=== PATIENT | female | born 1965 | race Caucasian/White ===

== ENCOUNTER → 2018-01-13 | Outpatient (CLI) | payer OTHER ==
[~2018-01-13] MED LIST: IMITREX25 MG PO; PROMETHAZINE HC25 M1 PO; VALIUM10 MG PO
--- NOTE | 2018-01-14 08:59 | Diagnostic Imaging Report ---
MRI of the right ankle without contrast. History: Ankle pain. Fall. Internal drainage. Pain worse with walking. Technique: Utilizing a high-field 1.5T magnet, the following sequences were acquired: PD FS in all 3 planes with additional axial PD. Comparison: None. Findings: Achilles tendon and plantar fascia: The Achilles tendon and plantar fascia are normal. There is mild retrocalcaneal bursitis. Cartilage and bone: Negative for osteochondral lesion of the tibiotalar and subtalar joints. Negative for fracture, osteonecrosis, or dislocation Medial ankle: There is a mild sprain of the deltoid ligament complex. The majority of the fibers are intact. There is mild bone marrow edema in the medial malleolus likely due to a stress response. The medial flexor tendons are intact. There is mild soft tissue edema at the medial aspect of the ankle. Lateral ankle: There is a high-grade tear of the anterior talofibular and calcaneofibular ligaments with soft tissue edema at the anterior lateral gutter. The posterior talofibular ligaments are intact. Metallic artifact in the tip of the fibula obscures fine detail of the region. There is soft tissue edema at the lateral aspect of the ankle. The syndesmotic ligaments are intact. The peroneal tendons are normal. Anterior ankle: The anterior extensor tendons are normal. Other findings: There is a tibiotalar joint effusion and synovitis. Impression: High-grade tear of the anterior talofibular and calcaneofibular ligaments with soft tissue edema in the anterior lateral gutter. Mild sprain of the deltoid ligament complex. The majority of the fibers are intact. Tibiotalar joint effusion and synovitis. Signed by: Dr. Julio C To M.D. on 01/14/2018 8:56 AM
== END ==
LOC: MRI 15:39
PROVIDERS: ATTEND Podiatrist Foot Surgery
DX: M77.9 Enthesopathy, unspecified (principal); M79.671 Pain in right foot; M24.874 Other specific joint derangements of right foot, not elsewhere classified; S93.401A Sprain of unspecified ligament of right ankle, initial encounter

== ENCOUNTER 2019-05-16 13:59 | Outpatient (RCR) | payer OTHER | END 2019-05-21 | LOC: PT 13:59 | PROVIDERS: ATTEND Specialist | DX: M47.896 Other spondylosis, lumbar region (principal); M62.81 Muscle weakness (generalized); M53.86 Other specified dorsopathies, lumbar region ==

== ENCOUNTER 2019-06-07 16:47 | Outpatient (RCR) | payer OTHER | END 2019-06-21 | LOC: PT 16:47 | PROVIDERS: ATTEND Specialist | DX: M47.896 Other spondylosis, lumbar region (principal) ==

== ENCOUNTER 2020-01-07 14:16 | Inpatient (IN) | payer OTHER ==
[~2020-01-07] VITALS: Ht 172.7 cm; Wt 81.6 kg
[2020-01-07] MEDS ORDERED: KETOROLAC TROMETHAMINE 30 MG/ML VIAL IV ONE (14:49)
[2020-01-07] MEDS ORDERED: SODIUM CHLORIDE 0.9% 1000ML 1,000 ML IV STA (14:49)
[2020-01-07] MEDS ORDERED: SODIUM CHLORIDE FLUSH 10 ML SYR INJ PRN (15:00)
[2020-01-07] MEDS ORDERED: LORAZEPAM INJ 2 MG/ML VIAL IV ONE (15:00)
[2020-01-07] MEDS ORDERED: SODIUM CHLORIDE 0.9% 1000ML 1,000 ML ONE (15:13)
[2020-01-07] MEDS ORDERED: KETOROLAC TROMETHAMINE 30 MG/ML VIAL ONE (15:13)
[2020-01-07] MEDS ORDERED: LORAZEPAM INJ 2 MG/ML VIAL ONE (15:13)
[2020-01-07 15:47] LABS: HEMATOCRIT 48.6 % (34.2-44.1); HEMOGLOBIN 16.6 g/dL (12.0-16.0); MEAN CORPUSCULAR HEMOGLOBIN 29.2 pg (28-32); MEAN CORPUSCULAR HGB CONC 34.2 g/dL (31-35); MEAN CORPUSCULAR VOLUME 85.6 fL (81-99); PLATELET COUNT 386 x10e3/uL (140-360); RED BLOOD COUNT 5.68 x10e6/uL (3.6-5.1); RED CELL DISTRIBUTION WIDTH 12.7 % (11.7-14.4)
[2020-01-07] MEDS ORDERED: ONDANSETRON HCL INJ 2MG/ML 2ML 2 MG/ML VIAL IV STA ×2 (16:03→19:10)
[2020-01-07] MEDS ORDERED: ONDANSETRON HCL INJ 2MG/ML 2ML 2 MG/ML VIAL ONE ×2 (16:07→19:24)
[2020-01-07] MEDS ORDERED: ONDANSETRON HCL INJ 2MG/ML 2ML 2 MG/ML VIAL IV ONE (16:15)
[2020-01-07] MEDS ORDERED: IOPAMIDOL 370 MG/ML 200 ML INFUS..BTL INJ ONE (16:28)
[2020-01-07] MEDS ORDERED: SODIUM CHLORIDE 0.9% 50ML 50 ML ONE ×2 (16:28→16:55)
[2020-01-07] MEDS ORDERED: MORPHINE SULFATE INJ 4 MG/ML INJ 1ML IV ONE (16:30)
[2020-01-07] MEDS ORDERED: PROMETHAZINE 25MG/ NS 50ML (IV) IV ONE (16:30)
[2020-01-07] MEDS ORDERED: PROMETHAZINE HCL (IM) 25 MG/ML VIAL IM ONE (16:54)
[2020-01-07] MEDS ORDERED: MORPHINE SULFATE INJ 4 MG/ML INJ 1ML ONE ×2 (16:55→19:24)
[2020-01-07] MEDS ORDERED: CEFTRIAXONE SOD 2 GM/NS 100 ML 100 ML IV ONE (17:30)
[2020-01-07] MEDS ORDERED: CEFTRIAXONE SOD 1 GM/NS 50 ML 50 ML IV ONE (18:09)
[2020-01-07] MEDS ORDERED: CEFTRIAXONE SOD 1 GM VIAL ONE (18:09)
[2020-01-07] MEDS ORDERED: MORPHINE SULFATE INJ 4 MG/ML INJ 1ML IV STA (19:10)
[2020-01-07 20:00] VITALS: BP 107/62
[2020-01-07 20:30] VITALS: BP 107/62
[2020-01-07 21:00] VITALS: BP 107/62
[2020-01-07] MEDS: SODIUM CHLORIDE 0.9% 1000ML 1,000 ML IV SCH (21:45)
[2020-01-07] MEDS: KETOROLAC TROMETHAMINE 30 MG/ML VIAL IV PRN (22:38)
[2020-01-08] VITALS (9 sets, daily range): BP systolic 103–137; BP diastolic 53–71
[2020-01-08] MEDS: ONDANSETRON HCL INJ 2MG/ML 2ML 2 MG/ML VIAL IV PRN ×5 (01:07→19:22)
[2020-01-08] MEDS: MORPHINE SULFATE INJ 4 MG/ML INJ 1ML IV PRN ×5 (01:15→19:27)
[2020-01-08] MEDS: KETOROLAC TROMETHAMINE 30 MG/ML VIAL IV PRN ×3 (05:41→22:46)
[2020-01-08 06:20] LABS: BASOPHILS # (AUTO) 0.1 (0.0-0.1); BASOPHILS % 1.3 % (0.0-1.0); EOSINOPHILS # (AUTO) 0.4 (0.0-0.4); EOSINOPHILS % 6.9 % (0.0-6.0); HEMOGLOBIN 13.1 g/dL (12.0-16.0); LYMPHOCYTES # (AUTO) 2.2 (1.0-3.2); LYMPHOCYTES % 34.8 % (18.0-39.1); MEAN CORPUSCULAR HGB CONC 33.6 g/dL (31-35); MEAN CORPUSCULAR VOLUME 86.3 fL (81-99); MONOCYTES # (AUTO) 0.5 (0.2-0.8); MONOCYTES % 8.3 % (4.4-11.3); NEUTROPHILS # (AUTO) 3.1 (2.1-6.9); NEUTROPHILS % 48.4 % (38.7-80.0); PLATELET COUNT 293 x10e3/uL (140-360); RED BLOOD COUNT 4.52 x10e6/uL (3.6-5.1)
[2020-01-08 06:33] LABS: ANION GAP 10.7 mmol/L (8-16); BLOOD UREA NITROGEN 13 mg/dL (7-26); BUN/CREATININE RATIO 19 (6-25); CALCIUM 7.8 mg/dL (8.4-10.2); CARBON DIOXIDE 23 mmol/L (22-29); CHLORIDE 111 mmol/L (98-107); CREATININE, SERUM 0.68 mg/dL (0.57-1.11); EST GLOMERULAR FILTRATION RATE > 60 ML/MIN (60-); GLUCOSE 78 mg/dL (74-118); POTASSIUM 3.7 mmol/L (3.5-5.1); SODIUM 141 mmol/L (136-145)
[2020-01-08] MEDS ORDERED: CEFTRIAXONE SOD 1 GM VIAL IV SCH (07:00)
[2020-01-08] MEDS: CEFTRIAXONE SOD 1 GM/NS 50 ML 50 ML IV SCH ×2 (07:38→18:37)
[2020-01-08] MEDS ORDERED: IOPAMIDOL 300MG/ML 50ML INFUS..BTL IV ONE (11:38)
[2020-01-08] MEDS ORDERED: ONDANSETRON HCL INJ 2MG/ML 2ML 2 MG/ML VIAL ONE (12:31)
[2020-01-08] MEDS ORDERED: MIDAZOLAM HCL 2 MG/2 ML VIAL ONE (12:42)
[2020-01-08] MEDS ORDERED: FENTANYL CITRATE/PF 100MCG/2 ML INJ ONE (12:42)
[2020-01-08] MEDS: SODIUM CHLORIDE 0.9% 1000ML 1,000 ML IV SCH ×2 (15:01→16:49)
[2020-01-09] MEDS: ONDANSETRON HCL INJ 2MG/ML 2ML 2 MG/ML VIAL IV PRN
[2020-01-09] MEDS: MORPHINE SULFATE INJ 4 MG/ML INJ 1ML IV PRN (00:08)
[2020-01-09] MEDS: SODIUM CHLORIDE 0.9% 1000ML 1,000 ML IV SCH (02:33)
[2020-01-09] MEDS: CEFTRIAXONE SOD 1 GM/NS 50 ML 50 ML IV SCH (06:09)
[2020-01-09 06:30] LABS: BASOPHILS % 0.3 % (0.0-1.0); EOSINOPHILS % 0.1 % (0.0-6.0); HEMATOCRIT 40.8 % (34.2-44.1); HEMOGLOBIN 13.2 g/dL (12.0-16.0); LYMPHOCYTES # (AUTO) 1.7 (1.0-3.2); LYMPHOCYTES % 18.4 % (18.0-39.1); MEAN CORPUSCULAR HEMOGLOBIN 28.3 pg (28-32); MEAN CORPUSCULAR HGB CONC 32.4 g/dL (31-35); MEAN CORPUSCULAR VOLUME 87.6 fL (81-99); MONOCYTES # (AUTO) 0.7 (0.2-0.8); MONOCYTES % 7.3 % (4.4-11.3); NEUTROPHILS # (AUTO) 6.8 (2.1-6.9); NEUTROPHILS % 73.4 % (38.7-80.0); PLATELET COUNT 293 x10e3/uL (140-360); RED BLOOD COUNT 4.66 x10e6/uL (3.6-5.1); RED CELL DISTRIBUTION WIDTH 12.9 % (11.7-14.4)
[2020-01-09 06:57] LABS: ALANINE AMINOTRANSFERASE 25 IU/L (0-55); ALBUMIN 2.8 g/dL (3.5-5.0); ALKALINE PHOSPHATASE 67 IU/L (40-150); ANION GAP 11.8 mmol/L (8-16); BLOOD UREA NITROGEN 14 mg/dL (7-26); BUN/CREATININE RATIO 18 (6-25); CALCIUM 8.3 mg/dL (8.4-10.2); CARBON DIOXIDE 23 mmol/L (22-29); CHLORIDE 111 mmol/L (98-107); CREATININE, SERUM 0.77 mg/dL (0.57-1.11); EST GLOMERULAR FILTRATION RATE > 60 ML/MIN (60-); GLUCOSE 110 mg/dL (74-118); POTASSIUM 3.8 mmol/L (3.5-5.1); SODIUM 142 mmol/L (136-145)
[2020-01-09] MEDS ORDERED: ULTRAM50 MG PO (07:36)
[2020-01-09] MEDS ORDERED: BACTRIM DS TAB1 EACH PO (07:37)
[2020-01-09 08:05] VITALS: BP 146/90
[2020-01-09 08:09] VITALS: BP 146/90
[2020-01-09] MEDS ORDERED: SEVOFLURANE INHAL SOLN 250 ML PEN BTL ONE (13:05)
[2020-01-09] MEDS ORDERED: DEXAMETHASONE SOD PHOS INJ 4 MG/ML VIAL ONE (13:05)
[2020-01-09] MEDS ORDERED: PROPOFOL IV EMULSION 10 MG/ML 20 ML VIAL ONE (13:05)
[2020-01-09] MEDS ORDERED: ONDANSETRON HCL INJ 2MG/ML 2ML 2 MG/ML VIAL ONE (13:05)
[2020-01-09] MEDS ORDERED: LIDOCAINE HCL 2% LOCAL INJ 5 ML SDV VIAL INJ ONE (13:05)
== END 2020-01-09 09:13 | disposition home or self-care (01) | DRG 661 ==
LOC: FSED 14:36 → ERHOLD 18:13 → MED/SURG 20:35
PROVIDERS: ADMIT Family Medicine; ATTEND Family Medicine
PROC: 0T778DZ Dilation of Left Ureter with Intraluminal Device, Via Natural or Artificial Opening Endoscopic (ICD-10-PCS; 2020-01-08)
PROC: BT141ZZ Fluoroscopy of Kidneys, Ureters and Bladder using Low Osmolar Contrast (ICD-10-PCS; 2020-01-08)
PROC: 0T768ZZ Dilation of Right Ureter, Via Natural or Artificial Opening Endoscopic (ICD-10-PCS; principal; 2020-01-08 10:30)
DX: N13.2 Hydronephrosis with renal and ureteral calculous obstruction (principal); K76.0 Fatty (change of) liver, not elsewhere classified; N28.1 Cyst of kidney, acquired; Z11.59 Encounter for screening for other viral diseases; G43.909 Migraine, unspecified, not intractable, without status migrainosus; K59.00 Constipation, unspecified
CPT/HCPCS: 36415; 74177; 74420; 80048; 80053; 80076; 81003; 85007; 85025; 85027; 87086; 96374; 96375; 99284; C1758; C1769; C2617; J0696; J1100; J1885; J2001; J2060; J2250; J2270; J2405; J2550; J3010; J7030; Q9967; U0002

== ENCOUNTER → 2020-01-13 | Day surgery (SDC) | payer OTHER ==
[~2020-01-13] MED LIST changes: +BACTRIM DS TAB1 EACH PO; +DIPHENHYDRAMINE HCL INJ 50 MG/ML VIAL ONE; +FENTANYL CITRATE/PF 100MCG/2 ML INJ ONE; +GENTAMICIN 120MG/NS 100ML 100 ML IV ONE; +HYDROMORPHONE 1MG/1ML INJ ONE; +IOPAMIDOL 300MG/ML 50ML INFUS..BTL IV ONE; +KETOROLAC TROMETHAMINE 30 MG/ML VIAL ONE; +LIDOCAINE HCL 2% LOCAL INJ 5 ML SDV VIAL INJ ONE; +MIDAZOLAM HCL 2 MG/2 ML VIAL ONE; +ONDANSETRON HCL INJ 2MG/ML 2ML 2 MG/ML VIAL ONE; +PROPOFOL IV EMULSION 10 MG/ML 20 ML VIAL ONE; +SEVOFLURANE INHAL SOLN 250 ML PEN BTL ONE; +ULTRAM50 MG PO
--- NOTE | 2020-01-13 10:12 | Diagnostic Imaging Report ---
OR Fluoroscopy: IMPRESSION: Fluoroscopy service provided in the OR. Interpretation not requested. Signed by: Nikolai Monzon MD on 01/13/2020 10:09 AM
[2020-01-13 11:30] VITALS: BP 130/84
--- NOTE | 2020-01-17 10:44 | Operative Report ---
DATE OF PROCEDURE: 01/13/2020 SURGEON: Kristopher Beltre MD PREOPERATIVE DIAGNOSES: 1. Left ureteral stent. 2. Left ureteral calculus. POSTOPERATIVE DIAGNOSES: 1. Left ureteral stent. 2. Left ureteral calculus. PROCEDURES: 1. Cystourethroscopy with complicated removal of left indwelling ureteral stent (entirely separate procedure for diagnosis of encrusted left ureteral stent. 2. Left-sided ureteroscopy with laser lithotripsy (entirely separate procedure to rid the patient of a left impacted ureteral stone). 3. Left-sided ureteroscopy with stone extraction (entirely separate procedure with explicit purpose of sending stones for analysis, not required for laser lithotripsy). 4. Supervision of fluoroscopy for both ureteroscopic and stent removal portion. 5. Interpretation of retrograde pyelography. ANESTHESIA: General. ESTIMATED BLOOD LOSS: Minimal. COMPLICATIONS: None. INDICATIONS FOR PROCEDURE: Ms. Griffith is a very pleasant patient with a history of impacted left ureteral calculus. She and I had a long discussion of alternatives, risks, and benefits of doing nothing, shockwave lithotripsy, ureteroscopy, percutaneous surgery or open surgery. She voiced understanding of the options, alternatives, risks, and benefits and elected to proceed. PROCEDURE IN DETAIL: After informed consent was obtained, the patient was taken to the operative suite, placed on the operative table. General anesthesia was placed in dorsal lithotomy position and sterilely prepped and draped in standard fashion for cystoscopy. A 21-Turkish cystoscope was inserted per urethra. Normal urethra noted. Panendoscopy of the bladder revealed no tumors, no stones. Both ureteral orifices were normal anatomic location position and . Attempt was made to catheterize the stent, it was completely encrusted, this failed. Guidewire was inserted alongside the stent and seen to coil at the level of the renal pelvis on the fluoroscopy. The stent was removed intact. Ureteroscope was advanced to the level of ascending ureteral stone utilizing 365 micron laser fiber. The stone was obliterated with multiple fragments. several fragments were basket extracted and passed off the table as specimens. At this time, retrograde pyelograms performed revealing interim removal of stone, resolved hydronephrosis collecting system drained promptly under fluoroscopy. Bladder was drained. The patient was awakened from anesthesia and transported to the recovery room in excellent condition. Supervision of fluoroscopy and interpretation of retrograde pyelography: I was present for the entire procedure and supervised fluoroscopy for both ureteroscopic as well as stent removal portions. Attention was turned towards the left ureter orifices, which were catheterized revealing an interim removal left ureteral calculus. Chronic proximal hydronephrosis was drained under fluoroscopy and interim removal of stent. MD KEYUR Concepcion/MODL /[id number]
== END | disposition home or self-care (01) ==
LOC: OR 06:40
PROVIDERS: ATTEND Urology
DX: N20.1 Calculus of ureter (principal); Z46.6 Encounter for fitting and adjustment of urinary device; N13.30 Unspecified hydronephrosis; N39.0 Urinary tract infection, site not specified; G43.909 Migraine, unspecified, not intractable, without status migrainosus; F41.9 Anxiety disorder, unspecified; Z88.6 Allergy status to analgesic agent; Z88.1 Allergy status to other antibiotic agents; Z01.812 Encounter for preprocedural laboratory examination; Z11.59 Encounter for screening for other viral diseases
CPT/HCPCS: 52353; 74420; 88300; C1758; C1769; J1170; J1200; J1580; J1885; J2001; J2250; J2405; J2704; J3010; Q9967; U0002

== ENCOUNTER 2021-03-13 16:28 | Observation (INO) | payer OTHER ==
[~2021-03-13] VITALS: Ht 172.7 cm; Wt 81.6 kg
[~2021-03-13 16:28] MED LIST changes: -DIPHENHYDRAMINE HCL INJ 50 MG/ML VIAL ONE; -FENTANYL CITRATE/PF 100MCG/2 ML INJ ONE; -GENTAMICIN 120MG/NS 100ML 100 ML IV ONE; -HYDROMORPHONE 1MG/1ML INJ ONE; -IOPAMIDOL 300MG/ML 50ML INFUS..BTL IV ONE; -KETOROLAC TROMETHAMINE 30 MG/ML VIAL ONE; -LIDOCAINE HCL 2% LOCAL INJ 5 ML SDV VIAL INJ ONE; -MIDAZOLAM HCL 2 MG/2 ML VIAL ONE; -ONDANSETRON HCL INJ 2MG/ML 2ML 2 MG/ML VIAL ONE; -PROPOFOL IV EMULSION 10 MG/ML 20 ML VIAL ONE; -SEVOFLURANE INHAL SOLN 250 ML PEN BTL ONE
[2021-03-13] MEDS ORDERED: KETOROLAC TROMETHAMINE 30 MG/ML VIAL IV STA (16:52)
[2021-03-13] MEDS ORDERED: PROMETHAZINE 25MG/ NS 50ML (IV) IV ONE (17:00)
[2021-03-13 17:13] LABS: BASOPHILS # (AUTO) 0.1 (0.0-0.1); BASOPHILS % 0.9 % (0.0-1.0); EOSINOPHILS # (AUTO) 0.5 (0.0-0.4); EOSINOPHILS % 7.6 % (0.0-6.0); HEMATOCRIT 48.3 % (34.2-44.1); HEMOGLOBIN 16.1 g/dL (12.0-16.0); LYMPHOCYTES # (AUTO) 2.6 (1.0-3.2); MEAN CORPUSCULAR HEMOGLOBIN 28.5 pg (28-32); MEAN CORPUSCULAR HGB CONC 33.3 g/dL (31-35); MEAN CORPUSCULAR VOLUME 85.5 fL (81-99); MONOCYTES # (AUTO) 0.5 (0.2-0.8); MONOCYTES % 7.5 % (4.4-11.3); NEUTROPHILS # (AUTO) 3.2 (2.1-6.9); NEUTROPHILS % 45.7 % (38.7-80.0); PLATELET COUNT 296 x10e3/uL (140-360); RED BLOOD COUNT 5.65 x10e6/uL (3.6-5.1); RED CELL DISTRIBUTION WIDTH 12.9 % (11.7-14.4)
[2021-03-13] MEDS: SODIUM CHLORIDE 0.9% 1000ML 1,000 ML IV SCH (17:13)
[2021-03-13] MEDS ORDERED: Morphine 4mg Syringe 4 MG/ML INJ IV ONE (17:30)
[2021-03-13 17:43] LABS: ALBUMIN 3.8 g/dL (3.5-5.0); ALBUMIN/GLOBULIN RATIO 1.4 (0.8-2.0); ANION GAP 14.1 mmol/L (8-16); CALCIUM 8.6 mg/dL (8.4-10.2); CREATININE, SERUM 0.75 mg/dL (0.57-1.11); POTASSIUM 4.1 mmol/L (3.5-5.1)
[2021-03-13] MEDS ORDERED: KETOROLAC TROMETHAMINE 30 MG/ML VIAL IV PRN (19:00)
[2021-03-13 19:20] VITALS: BP 102/58
[2021-03-13 20:00] VITALS: BP 102/58
[2021-03-13] MEDS: Morphine 2mg Syringe 2 MG/ML SYR IV PRN ×2 (20:10→23:30)
[2021-03-13] MEDS ORDERED: CEPACOL SORE THROAT LOZENGES PO PRN (21:45)
[2021-03-13] MEDS: CEPACOL SORE THROAT LOZENGES PO PRN ×2 (21:50→23:50)
[2021-03-13 22:31] VITALS: BP 102/58
[2021-03-14 00:42] VITALS: BP 110/59
[2021-03-14] MEDS: Morphine 2mg Syringe 2 MG/ML SYR IV PRN (03:45)
[2021-03-14] MEDS ORDERED: SUMATRIPTAN SU100 MG PO (04:43)
[2021-03-14] MEDS ORDERED: LEVOCETIRIZINE D5 MG PO (04:43)
[2021-03-14] MEDS ORDERED: MONTELUKAST SOD10 MG PO (04:43)
[2021-03-14 04:56] VITALS: BP 105/69
[2021-03-14] MEDS: SODIUM CHLORIDE 0.9% 1000ML 1,000 ML IV SCH ×2 (05:00→09:23)
[2021-03-14] MEDS ORDERED: IOPAMIDOL 300MG/ML 50ML INFUS..BTL IV ONE ×2 (06:27→07:39)
[2021-03-14 06:29] LABS: BASOPHILS # (AUTO) 0.1 (0.0-0.1); BASOPHILS % 1.3 % (0.0-1.0); EOSINOPHILS # (AUTO) 0.5 (0.0-0.4); EOSINOPHILS % 8.4 % (0.0-6.0); HEMATOCRIT 44.1 % (34.2-44.1); LYMPHOCYTES # (AUTO) 2.3 (1.0-3.2); LYMPHOCYTES % 37.7 % (18.0-39.1); MEAN CORPUSCULAR HEMOGLOBIN 28.5 pg (28-32); MEAN CORPUSCULAR HGB CONC 31.7 g/dL (31-35); MEAN CORPUSCULAR VOLUME 89.6 fL (81-99); MONOCYTES # (AUTO) 0.5 (0.2-0.8); MONOCYTES % 8.4 % (4.4-11.3); NEUTROPHILS # (AUTO) 2.7 (2.1-6.9); PLATELET COUNT 258 x10e3/uL (140-360); RED BLOOD COUNT 4.92 x10e6/uL (3.6-5.1); RED CELL DISTRIBUTION WIDTH 13.2 % (11.7-14.4)
[2021-03-14 07:08] LABS: ANION GAP 11.6 mmol/L (8-16); CALCIUM 7.9 mg/dL (8.4-10.2); CREATININE, SERUM 0.72 mg/dL (0.57-1.11); POTASSIUM 4.6 mmol/L (3.5-5.1)
[2021-03-14] MEDS ORDERED: BELLADONNA/OPIUM 30 MG SUPP RC ONE (07:39)
[2021-03-14 08:00] VITALS: BP 117/56
[2021-03-14] MEDS: CEPACOL SORE THROAT LOZENGES PO PRN (08:54)
[2021-03-14 08:55] VITALS: BP 117/56
[2021-03-14 12:00] VITALS: BP 109/65
[2021-03-14] MEDS ORDERED: ONDANSETRON HCL INJ 2MG/ML 2ML 2 MG/ML VIAL ONE (12:08)
[2021-03-14] MEDS ORDERED: PROPOFOL IV EMULSION 10 MG/ML 20 ML VIAL ONE (12:08)
[2021-03-14] MEDS ORDERED: POVIDONE IODINE 0.05% 0.05 % ML PO ONE (12:08)
[2021-03-14] MEDS ORDERED: SEVOFLURANE INHAL SOLN 250 ML PEN BTL ONE (12:08)
[2021-03-14] MEDS ORDERED: CEFTRIAXONE 1 GM VIAL ONE (12:08)
[2021-03-14] MEDS ORDERED: LIDOCAINE HCL 2% LOCAL INJ 5 ML SDV VIAL INJ ONE (12:08)
[2021-03-14] MEDS ORDERED: DEXAMETHASONE SOD PHOS INJ 4 MG/ML SDV ONE (12:08)
[2021-03-14] MEDS ORDERED: FENTANYL CITRATE/PF 100MCG/2 ML INJ ONE (12:25)
[2021-03-14] MEDS ORDERED: MIDAZOLAM HCL 2 MG/2 ML VIAL ONE (12:25)
== END 2021-03-14 12:09 | disposition home or self-care (01) ==
LOC: ER 17:20 → ERHOLD 17:39 → MED/SURG 18:47
PROVIDERS: ADMIT Family Medicine; ATTEND Family Medicine
DX: N13.2 Hydronephrosis with renal and ureteral calculous obstruction (principal); Z88.8 Allergy status to other drugs, medicaments and biological substances; I10 Essential (primary) hypertension; F41.9 Anxiety disorder, unspecified; E86.0 Dehydration; Z91.19 Patient's noncompliance with other medical treatment and regimen; Z20.822 Contact with and (suspected) exposure to COVID-19
CPT/HCPCS: 36415; 74420; 80048; 80053; 85025; 94799; 96361; 99284; C1769; G0378; J0696; J1100; J1885; J2001; J2250; J2270; J2405; J2550; J3010; J7030; U0002

== ENCOUNTER → 2022-09-05 | Outpatient (CLI) | payer OTHER ==
[~2022-09-05] MED LIST changes: +LEVOCETIRIZINE D5 MG PO; +MONTELUKAST SOD10 MG PO; +SUMATRIPTAN SU100 MG PO
== END ==
LOC: RAD 15:21
PROVIDERS: ATTEND Nurse Practitioner Family
DX: M79.601 Pain in right arm (principal)
CPT/HCPCS: 93971

== ENCOUNTER → 2023-01-20 | Outpatient (REF) | payer OTHER ==
[~2023-01-20] MED LIST changes: +FEMARA2.5 MG PO; +PRISTIQ ER50 MG PO; +TOPIRAMATE25 MG PO
== END ==
LOC: RAD 09:20
PROVIDERS: ATTEND Family Medicine
DX: J01.01 Acute recurrent maxillary sinusitis (principal); J30.9 Allergic rhinitis, unspecified
CPT/HCPCS: 70220

== ENCOUNTER → 2023-02-20 | Outpatient (REF) | payer OTHER | LOC: MRI 15:04 | PROVIDERS: ATTEND Family Medicine | DX: M51.37 Other intervertebral disc degeneration, lumbosacral region (principal) | CPT/HCPCS: 72148 ==

== ENCOUNTER → 2023-03-05 | Outpatient (REF) | payer OTHER | LOC: US 07:28 | PROVIDERS: ATTEND Family Medicine | DX: R94.5 Abnormal results of liver function studies (principal) | CPT/HCPCS: 76705 ==